=== PATIENT | female | born 1985 | race Caucasian/White ===

== ENCOUNTER 2024-04-01 22:35 | Emergency (ER) | payer OTHER ==
[~2024-04-01] VITALS: Ht 170.2 cm; Wt 81.6 kg
[2024-04-01 22:39] VITALS: BP 134/75; PULSE 88; RESP 22; TEMP 98; O2SAT 98
[2024-04-01] MEDS ORDERED: IBUP-2213 PO (22:53)
[2024-04-01] MEDS ORDERED: ACET-5629 PO (22:53)
[2024-04-01] MEDS: KETOROLAC 60 MG/2 ML VIAL IM ONE (22:58)
[2024-04-01 23:13] VITALS: BP 132/75; PULSE 75; RESP 20; TEMP 98; O2SAT 99
== END 2024-04-01 23:12 | disposition home or self-care (01) ==
LOC: MED 22:35
DX: M54.50 Low back pain, unspecified (principal); R03.0 Elevated blood-pressure reading, without diagnosis of hypertension; Z90.49 Acquired absence of other specified parts of digestive tract; Z90.710 Acquired absence of both cervix and uterus
CPT/HCPCS: 81025; 96372; 99283; J1885